=== PATIENT | female | born 1990 | race Caucasian/White ===

== ENCOUNTER 2018-03-28 06:16 | Emergency (ER) | payer BC ==
[~2018-03-28 06:16] MED LIST: ETHI1TAB26 PO; ETON68IM SQ; HYDR25CA83 PO; IBU600 PO; LOR5/325 PO; ONDA4TAB PO; PROM-110 PO
--- NOTE | 2018-03-28 06:25 | ER Report ---
History and Physical Time Seen By MD: 06:24 HPI/ROS CHIEF COMPLAINT: Vomiting, hematemesis HISTORY OF PRESENT ILLNESS: 27-year-old female presents after the onset of vomiting around 3 AM. Patient states that she is about the last 2 nights cons uming moderate amounts of alcohol. This morning she got sick and began to vomit. After an hour's worth of vomiting. She began to vomit some blood. Patient denies NSAIDs to excess. She denies a history of GI bleed. Patient notes replacement of a Nexplanon. REVIEW OF SYSTEMS: Respiratory: No cough, no dyspnea. Cardiovascular: No chest pain, no palpitations. Gastrointestinal: As above Musculoskeletal: No back pain. Allergies: Coded Allergies: No Known Drug Allergies (Unverified , 03/28/18) Home Meds Active Scripts Promethazine Hcl (PROMETHAZINE HCL) 25 Mg Tablet, 25 MG PO Q4H PRN for NAUSEA/VOMITING, #14 TAB Prov:DENIA WHITMAN DO 03/28/18 Ondansetron 4 Mg Odt (ONDANSETRON 4 MG ODT) 4 Mg Tab.rapdis, 4 MG PO Q6H PRN for NAUSEA/VOMITING, #10 TAB Prov:DENIA WHITMAN DO 03/28/18 Promethazine Hcl (PROMETHAZINE HCL) 25 Mg Tablet, 25 MG PO Q8H PRN for NAUSEA/VOMITING, #14 TAB 0 Refills Prov:YECENIA MOONEY MD 06/30/16 Ondansetron (ZOFRAN ODT) 4 Mg Tab.rapdis, 4 MG PO Q6H PRN for NAUSEA/VOMITING, #20 TAB.DANELLE 0 Refills Prov:YECENIA MOONEY MD 06/30/16 Hydroxyzine Pamoate (VISTARIL) 25 Mg Capsule, 25 MG PO Q6-8H for anxiety, #20 CAPSULE Prov:PHOENIX WHITAKER DO 03/09/15 Reported Medications Etonogestrel (NEXPLANON) 68 Mg Implant, 68 MG SQ DIRECTED, IMPLANT 03/09/15 Reviewed Nurses Notes: Yes Old Medical Records Reviewed: Yes Hx Smoking: Yes Smoking Status: Current: Some Days Smoker Hx Substance Use Disorder: No Constitutional Vital Sign - Last 24 Hours 03/28/18 03/28/18 03/28/18 03/28/18 06:23 06:30 06:46 06:51 Temp 98.1 Pulse 127 119 90 Resp 16 B/P (MAP) 131/104 122/80 (94) Pulse Ox 95 92 99 O2 Delivery Room Air 03/28/18 03/28/18 03/28/18 03/28/18 06:53 07:00 07:21 07:30 Pulse 77 B/P (MAP) 114/73 (87) 113/79 (90) Pulse Ox 100 O2 Flow Rate 2.0 Intake and Output 03/28/18 03/28/18 03/29/18 15:00 23:00 07:00 Intake Total 1000 ml Balance 1000 ml Physical Exam Vital signs stable, afebrile, pulse ox normal General Appearance: The patient is alert, has no immediate need for airway protection and no current signs of toxicity. HEENT: Pupils equal and round no injection. Oropharynx with mild erythema, no exudate or obvious signs of epistaxis Respiratory: Chest is non tender, lungs are clear to auscultation. Cardiac: regular rate and rhythm Gastrointestinal: Abdomen is soft and non tender, no masses, bowel sounds normal. Musculoskeletal: Neck: Neck is supple and non tender. Extremities have full range of motion and are non tender. Skin: No rashes or lesions. DIFFERENTIAL DIAGNOSIS: After history and physical exam differential diagnosis was considered for abdominal pain including but not limited to appendicitis, cholecystitis, gastritis and urinary tract infection. Additionally, Lydia- Thomson tear, gastritis Medical Decision Making Data Points Result Diagram: 03/28/1832 03/28/18 0632 Laboratory Hematology Test 03/28/18 06:32 Red Blood Count 5.31 M/uL (4.17-5.56) Mean Corpuscular Volume 89.4 fL (80.0-96.0) Mean Corpuscular Hemoglobin 30.3 pg (26.0-33.0) Mean Corpuscular Hemoglobin Concent 33.9 g/dL (32.0-36.0) Red Cell Distribution Width 13.1 % (11.5-14.5) Mean Platelet Volume 8.0 fL (7.2-11.1) Neutrophils (%) (Auto) 84.4 % (39.4-72.5) Lymphocytes (%) (Auto) 12.6 % (17.6-49.6) Monocytes (%) (Auto) 2.3 % (4.1-12.4) Eosinophils (%) (Auto) 0.3 % (0.4-6.7) Basophils (%) (Auto) 0.4 % (0.3-1.4) Nucleated RBC Relative Count (auto) 0.0 /100WBC Neutrophils # (Auto) 8.2 K/uL (2.0-7.4) Lymphocytes # (Auto) 1.2 K/uL (1.3-3.6) Monocytes # (Auto) 0.2 K/uL (0.3-1.0) Eosinophils # (Auto) 0.0 K/uL (0.0-0.5) Basophils # (Auto) 0.0 K/uL (0.0-0.1) Nucleated RBC Absolute Count (auto) 0.00 K/uL Sodium Level 144 mmol/L (137-145) Potassium Level 3.8 mmol/L (3.5-5.0) Chloride Level 112 mmol/L (98-107) Carbon Dioxide Level 21 mmol/L (22-31) Blood Urea Nitrogen 7 mg/dl (7-18) Creatinine 0.80 mg/dl (0.52-1.04) Glomerular Filtration Rate Calc > 60.0 Random Glucose 134 mg/dl (75-110) Calcium Level 9.0 mg/dl (8.4-10.2) Total Bilirubin 0.3 mg/dl (0.2-1.3) Aspartate Amino Transf (AST/SGOT) 24 U/L (0-35) Alanine Aminotransferase (ALT/SGPT) 31 U/L (0-56) Alkaline Phosphatase 94 U/L (0-126) Total Protein 8.3 g/dl (6.3-8.2) Albumin 5.0 g/dl (3.5-5.0) Amylase Level 81 U/L (0-110) Lipase 215 U/L (23-300) Human Chorionic Gonadotropin, Qual Negative (NEGATIVE) Chemistry Test 03/28/18 06:32 White Blood Count 9.7 k/uL (4.5-11.0) Red Blood Count 5.31 M/uL (4.17-5.56) Hemoglobin 16.1 g/dL (12.0-16.0) Hematocrit 47.4 % (34.0-47.0) Mean Corpuscular Volume 89.4 fL (80.0-96.0) Mean Corpuscular Hemoglobin 30.3 pg (26.0-33.0) Mean Corpuscular Hemoglobin Concent 33.9 g/dL (32.0-36.0) Red Cell Distribution Width 13.1 % (11.5-14.5) Platelet Count 325 K/uL (150-450) Mean Platelet Volume 8.0 fL (7.2-11.1) Neutrophils (%) (Auto) 84.4 % (39.4-72.5) Lymphocytes (%) (Auto) 12.6 % (17.6-49.6) Monocytes (%) (Auto) 2.3 % (4.1-12.4) Eosinophils (%) (Auto) 0.3 % (0.4-6.7) Basophils (%) (Auto) 0.4 % (0.3-1.4) Nucleated RBC Relative Count (auto) 0.0 /100WBC Neutrophils # (Auto) 8.2 K/uL (2.0-7.4) Lymphocytes # (Auto) 1.2 K/uL (1.3-3.6) Monocytes # (Auto) 0.2 K/uL (0.3-1.0) Eosinophils # (Auto) 0.0 K/uL (0.0-0.5) Basophils # (Auto) 0.0 K/uL (0.0-0.1) Nucleated RBC Absolute Count (auto) 0.00 K/uL Glomerular Filtration Rate Calc > 60.0 Calcium Level 9.0 mg/dl (8.4-10.2) Total Bilirubin 0.3 mg/dl (0.2-1.3) Aspartate Amino Transf (AST/SGOT) 24 U/L (0-35) Alanine Aminotransferase (ALT/SGPT) 31 U/L (0-56) Alkaline Phosphatase 94 U/L (0-126) Total Protein 8.3 g/dl (6.3-8.2) Albumin 5.0 g/dl (3.5-5.0) Amylase Level 81 U/L (0-110) Lipase 215 U/L (23-300) Human Chorionic Gonadotropin, Qual Negative (NEGATIVE) ED Course/Re-evaluation Clinical Indication for ER IV: Hydration, IV Access ED Course Patient was admitted to an examination room. H&P was done. The differential diagnoses was considered. On clinical examination. Patient with abdominal pain and vomiting. She had significant alcohol over the weekend. She has some hematemesis, which is likely alcoholic gastritis or Lydia-Thomson tear. Patient advised to take Prilosec to reduce her acid load and lower stomach to heal. He is discharged home and advised a clear liquid diet for 24-48 hours. She's given Zofran and Phenergan prescriptions. Her H&H was stable. Her other laboratory studies were unremarkable. Decision to Disposition Date: Mar 28, 2018 Decision to Disposition Time: 06:49 Depart Departure Latest Vital Signs Vital Signs Date Time Temp Pulse Resp B/P (MAP) Pulse Ox O2 Delivery O2 Flow Rate FiO2 03/28/18 07:30 113/79 (90) 03/28/18 07:21 77 100 03/28/18 06:53 2.0 03/28/18 06:23 98.1 16 Room Air Impression: Primary Impression: Vomiting Additional Impression: Hematemesis Condition: Improved Disposition: HOME OR SELF-CARE Referrals: [facility] (PCP) New Scripts Promethazine Hcl (PROMETHAZINE HCL) 25 Mg Tablet 25 MG PO Q4H PRN for NAUSEA/VOMITING, #14 TAB Prov: DENIA WHITMAN DO 03/28/18 Ondansetron 4 Mg Odt (ONDANSETRON 4 MG ODT) 4 Mg Tab.rapdis 4 MG PO Q6H PRN for NAUSEA/VOMITING, #10 TAB Prov: DENIA WHITMAN DO 03/28/18 Patient Instructions: Acute Nausea and Vomiting (ED) Additional Instructions: Take Prilosec 20 mg per day to reduce her stomach acid, all of your esophagus to heal. Follow-up with your primary care if unimproved in 3-5 days. Problem Qualifiers Primary Impression: Vomiting Vomiting type: unspecified Vomiting Intractability: unspecified Nausea presence: with nausea Qualified Codes: R11.2 - Nausea with vomiting, unspecified Additional Impression: Hematemesis Nausea presence: with nausea Qualified Codes: K92.0 - Hematemesis DENIA WHITMAN DO Mar 28, 2018 06:25
[2018-03-28] MEDS ORDERED: NS(*) 0.9% 1000 ML BAG 1,000 ML IV ONE (06:27)
[2018-03-28] MEDS ORDERED: ONDANSETRON 4 MG/2 ML VIAL IVP ONE (06:30)
[2018-03-28] MEDS ORDERED: PROMETHAZINE 25 MG/ML 1 ML AMP IVP ONE (06:30)
[2018-03-28 06:42] LABS: PLATELET COUNT, AUTOMATED 325 K/uL (150-450)
[2018-03-28] MEDS ORDERED: PROM-110 PO (06:50)
[2018-03-28] MEDS ORDERED: ONDA4TAB9 PO (06:50)
[2018-03-28 07:30] VITALS: BP 113/79
== END 2018-03-28 07:42 | disposition home or self-care (01) ==
LOC: ER 06:29
DX: K92.0 Hematemesis (principal)
CPT/HCPCS: 82150; 83690; 84703; 85025; 96361; 96374; 96375; 99284; J2405; J2550; J7030; 82040; 82247; 82310; 82374; 82435; 82565; 82947; 84075; 84132; 84155; 84295; 84450; 84460; 84520